=== PATIENT | female | born 1965 | race Caucasian/White ===

== ENCOUNTER 2019-06-10 08:21 | Day surgery (SDC) | payer OTHER, SELFPAY ==
[2019-06-07 07:36] VITALS: BMI 37.2
[2019-06-10] VITALS (20 sets, daily range): BP systolic 123–158; BP diastolic 70–92; PULSE 66–97; RESP 14–22; TEMP 35.6–37.2; O2SAT 93–98; BMI 36.0
--- NOTE | 2019-06-10 | PATH_ITS ---
[facility] Accession Number: [id number] . 01 Material submitted: . uterus - UTERUS, RIGHT FALLOPIAN TUBE, AND BILATERAL OVARIES . 01 Diagnosis: Uterus, Bilateral Ovaries and Right Fallopian Tube; Hysterectomy with Bilateral Oophorectomy and Right Salpingectomy: Endometrium: Proliferative phase endometrium; negative for endometrial polyps, hyperplasia, atypia and malignancy. Myometrium: Benign leiomyomas with hyalinized changes and adenomyosis also present. Negative for atypia and malignancy. Bilateral Ovaries: One ovary with endometriotic cyst and the other ovary with corpus albicans. Negative for atypia and malignancy. Right Fallopian Tube: Benign fallopian tube with endometriosis and associated cyst. Negative for atypia and malignancy. [facility] 06/13/2019 1719 Local . 01 Electronically signed: . Joan Blackwell MD, Pathologist NPI- [id number] . 01 Gross description: . Received in formalin, labeled uterus, right fallopian tube and bilateral ovaries, is a morcellated uterus (351 grams, 17.2 x 16.7 cm in aggregate), two ovaries (ovary #1- 5.0 x 2.7 x 1.2 cm; ovary #2- 3.5 x 3.0 x 1.2 cm), and a non-fimbriated fallopian tube segment (length-2.0 cm, diameter-0.9 cm). The cervix and second fallopian tube are absent. The specimen cannot be oriented and the endometrium and myometrium cannot be grossly measured. The parenchyma is narayanan-white and contains multiple solid firm white whorled well-circumscribed homogenous nodules (0.1 cm-2.5 cm). The serosa is pale narayanan smooth and shiny. The ovaries have holly-yellow dull smooth and flat serosa and holly-white solid cystic parenchyma with corpus albicans identified. The cavities (0.1 cm-2.4 cm) contain brown gelatinous material. The apparent fallopian tube has narayanan smooth and shiny serosa and a dilated lumen containing brown paste-like material. Section code: (A1-A5) uterine parenchyma, cordage sales representative; (A6) ovary #1, cordage sales representative serial section; (A7) ovary #2, cordage sales representative serial section; (A8) fallopian tube, cordage sales representative serial section. ([id number]) /[facility] 06/11/2019 1914 Local . 01 Pathologist provided ICD-10: D25.9, N83.209 . 01 CPT . 338249 Performed at: 01 [facility] [address], [place], [place] [id number] MD Duglas Chun MD Phone: [phone]
[2019-06-10] MEDS: LACTATED RINGERS 1,000 ML 100 ML IV ×3 (09:07→16:27)
--- NOTE | 2019-06-10 09:12 | P.OP_ITS ---
Operative Date/Time/Diagnoses Date of procedure: 06/10/19 Time of procedure: 11:30 Pre-op diagnosis: Fibroid uterus Complex ovarian cyst Post-op diagnosis: same Procedure & Clinicians Procedure: Procedures Operation Date: 06/10/19 09:45 <No data on this case meets the specified criteria> Indications: Fibroid uterus Complex ovarian cyst Surgeon: Courtney Otero Senior Hris Analyst: Alta Sanchez Anesthesia Type: General Operative Notes Findings: 12 week size multi fibroid uterus Left ovarian endometrioma Significant left adnexal adhesions Omental to anterior abdominal wall adhesions Bladder to uterine adhesions Normal right ovary and partial tube Closure Type: primary Specimen(s): right tube & ovary, uterus and other (Left ovary) Applied: catheter Estimated blood loss (mL): 75 Blood products transfused: none Procedure in detail: The patient was taken to the operating room where she was placed in the dorsal supine position. After adequate general endotracheal anesthesia was achieved, she was placed in the dorsal lithotomy position, and prepped and draped in the usual sterile fashion. A timeout was performed. A bivalve speculum was placed into the vagina and the anterior lip of the cervix grasped with a single-tooth tenaculum. The cervical os was sequentially dilated until the ZUMI uterine manipulator could pass easily into the endometrial cavity. The single-tooth tenaculum was removed from the anterior lip of the cervix, and the bivalve speculum was removed from the vagina. Attention was then turned to the abdomen where 6 mL of half percent Marcaine with epinephrine were injected in the umbilical fold. A 5 mm incision was made. The long veress needle was placed into the peritoneal cavity, and its placement confirmed by aspiration and drop test. The veress needle was removed. A 5 mm trocar was placed without difficulty. 2 other incisions were made midway between the pubic symphysis and umbilicus after 5 mL of half percent Marcaine with epinephrine were injected. These were 5 mm incisions. Two, 5 mm trochars were placed under direct visualization. Extensive lysis of omental to anterior abdominal wall adhesions were taken down with the PlasmaKinetic. The right tube and ovary were grasped with an atraumatic grasper. Using the plasma kinetic with settings of 40 W the mesosalpinx was cauterized and cut all the way down to the cornua of the uterus. The cornua of the uterus was then grasped with an atraumatic grasper. The utero-ovarian ligaments were cauterized and cut. The round ligament and broad ligament were cauterized and cut with plasma kinetic. Hemos tasis was achieved. The bladder flap was created using the plasma kinetic with cautery and cut skilled nursing across. The uterine arteries on the right side were extensively cauterized with plasma kinetic. On the left side the Endo Burke were used to take down bowel to left adnexal adhesions as well as ovary to left pelvic sidewall adhesions. There were also some adhesions between the left adnexa and the uterus and these were taken down as well. Hemostasis was achieved. The left ovary was grasped with an atraumatic grasper. The infundibulopelvic ligament on the left side was cauterized and cut. The round ligament and broad ligament were cauterized and cut. The remainder of the bladder flap was created using the PlasmaKinetic. The remainder of the bladder flap was created and the bladder taken down off the lower uterine segment and cervix. The Zumi uterine manipulator was removed from the uterus. A moistened sponge stick was placed into the vagina. Using the Linaloop, the cervix was amputated from the uterus 2 cm above the uterosacral ligament. The endocervical canal was extensively cauterized with the PlasmaKinetic. 6 mL of half percent Marcaine with epinephrine were injected above the pubic symphysis. A 12mm incision was made. A 12 mm trocar was placed under direct visualization. The trochar was removed. The fascial incision was extended using a Bill. An Endobag was placed through the suprapubic incision and the uterus, ovaries, and right tube were placed into the Endobag. The uterus was morcellated in approximately 20 pieces. The tube and ovaries were also removed from the Endobag. The Endobag was removed from the peritoneal cavity. The pelvis was copiously irrigated with warm normal saline. No bleeding was noted. 20 mL of 0.2% ropivacaine were placed over the pelvic pedicles. The instruments were removed from the abdomen. The CO2 was allowed to escape. The suprapubic incision was closed on the fascia with 0 Vicryl. All of the incisions were closed with 4-0 Biosyn in a subcuticular fashion. Steri strips, 2x2's and op sites were placed over the incisions. The moistened sponge stick was removed from the vagina. Sponge, lap, and instrument counts were correct x 2. The patient tolerated the procedure well, was taken to PACU in stable condition. Complications: none Post-operative Condition: stable Disposition: PACU Plan for aftercare: To acute care after recovery
[2019-06-10] MEDS: INSULIN REGULAR 100 UNIT/ML 3 ML VIAL IV (09:27)
--- NOTE | 2019-06-10 09:30 | PM.PREOP ---
Pre-operative Note Interval Note History & Physical reviewed/Exam performed by Physician: Yes Changes to H&P: No
[2019-06-10] MEDS: CEFAZOLIN 2 GM/100 ML FROZ.PIGGY IV (09:36)
--- NOTE | 2019-06-10 10:23 | SUR.OPER ---
Lithotomy on padded OR bed. Rangeley Pad Positioner under torso. Head on pillow, arms padded and tucked at sides. Legs secured in padded yellow fins stirrups.
--- NOTE | 2019-06-10 10:24 | SUR.OPER ---
CBG rechecked, per Dr. Cm, at 1025 = 188. Dr. Cm notified of results.
[2019-06-10] MEDS: BUPIVACAINE 0.5% W/ EPI (PF) VIAL 30 ML INJ (10:39)
[2019-06-10] MEDS: ROPIVACAINE 0.2% PF 2 MG/ML 10ML AMP 20 ML INJ (10:39)
[2019-06-10] MEDS: HYDROMORPHONE 2 MG INJ 0.5 MG IV ×3 (12:20→12:50)
[2019-06-10] MEDS: INSULIN REGULAR 100 UNIT/ML 3 ML VIAL 8 UNIT IV (12:26)
[2019-06-10] MEDS: OXYCODONE/ACETAMINOPHEN 5/325 TABLET 1 TAB PO (13:00)
[2019-06-10] MEDS: INSULIN ASPART 100 UNIT/ML INSULN PEN SUBCUT ×3 (14:00→21:05)
--- NOTE | 2019-06-10 14:15 | SUR.PHASEI ---
Pt transferred to room 204 via bed with all belongings. Last vital signs stable with pain at tolerable level; see flowsheet documentation for details. Pt's blood glucose was 248 prior to transfer and 5 units of Novolog was given subQ per Dr Cm's order. Report given to RACHEL Dow prior to transfer. Victor M to assume care of pt at this time.
--- NOTE | 2019-06-10 14:24 | PC.NURSE ---
Day shift: Pt on unit at approx 1420 from PACU. Pt reports pain minimal at this time but does c/o nausea. VS ok. SUPERINTENDENT BUILDING to check BG at this time because per CROWN BLOCKER BG elevated post-op. 3 Lap site dressings CDI. CMS intact. PPP. Family in room for support. Oriented to room and call light.
--- NOTE | 2019-06-10 14:48 | PC.NURSE ---
Day shift: Called Dr Nair office and requested that adress pain meds, nausea meds and DM meds at approx 1435.
--- NOTE | 2019-06-10 15:43 | PC.NURSE ---
Addendum entered by Courtney Perkins R.N. 06/10/19 21:38: Pt had small emesis late in evening. IVF continue as per orders. Dsg to abd. remain CDI Barbosa cath patane clear yellow urine. Stable post op course. Call light w/in reach, bed alarm on for pt safety. Continue w/plan of care. Addendum entered by Courtney Perkins R.N. 06/10/19 17:46: Med @ 1630 w/torodol for discomfort. IVF LR @ 100cc/hr infusing into LFA via pump w/o incidence. Stable post op course. Original Note: Pt resting quietly at this time. HL LFA intact. Three small dsg across abdomen CDI Barbosa cath patent clear yellow urine. Awaiting orders from . Call light w/in reach, bed alrm on for pt safety.
[2019-06-10] MEDS: KETOROLAC 30 MG/ML VIAL IV (16:28)
[2019-06-10] MEDS: ONDANSETRON 4 MG/2 ML INJ IV (20:08)
[2019-06-10] MEDS: METFORMIN HCL 500 MG TABLET 1000 MG PO (20:08)
[2019-06-10] MEDS: DOCUSATE 250 MG CAPSULE PO (20:09)
[2019-06-11] MEDS: KETOROLAC 30 MG/ML VIAL IV ×3 (00:42→13:08)
[2019-06-11] MEDS: LACTATED RINGERS 1,000 ML 100 ML IV (00:42)
[2019-06-11 05:05] VITALS: BP 143/83; PULSE 82; RESP 20; TEMP 36.8; O2SAT 99
--- NOTE | 2019-06-11 05:31 | PC.NURSE ---
Pt VSS, lung sounds clear bilaterally. Pt denies nausea on this shift. Pt given Toradol Q6 for pain 5/10. Per evening shift Rosmery Perkins, Q4 blood sugar checks were discontinued and ACHS put into their place. No notes noted in chart about this change of order from previous RN or Dr. Otero. Orders left in place until pt is seen by Dr. Otero in AM. Pt BS was 147 on this shift. Pt is wearing SCD's, call light is in within reach.
[2019-06-11 06:13] LABS: Add Manual Diff / Slide Review NO; Basophils Absolute Auto 100 /uL (0-100); Basophils Percent Auto 0.5 % (0-2); Eosinophils Absolute Auto 100 /uL (0-450); Eosinophils Percent Auto 0.6 % (2-4); Hematocrit 37.6 % (36-46); Hemoglobin 12.9 g/dL (12.0-16.0); Lymphocytes Absolute Auto 3800 /uL (1100-4500); Lymphocytes Percent Auto 40.6 % (25-40); Mean Corpuscular HGB Conc 34.3 % (30-36); Mean Corpuscular Volume 84.3 fL (80-100); Monocytes Absolute Auto 500 /uL (0-900); Monocytes Percent Auto 5.3 % (3-14); Neutrophils Absolute Auto 5000 /uL (1500-7000); Platelet Count 252 X10^3/uL (150-400); Red Blood Cell Count 4.45 X10^6/uL (4.0-5.2); White Blood Cell Count 9.4 X10^3/uL (4.5-11.0)
[2019-06-11] MEDS: LOSARTAN 50 MG TABLET PO (07:56)
[2019-06-11] MEDS: PRAVASTATIN 20 MG TABLET 10 MG PO (07:56)
[2019-06-11] MEDS: METFORMIN HCL 500 MG TABLET 1000 MG PO (07:57)
[2019-06-11] MEDS: DOCUSATE 250 MG CAPSULE PO (07:57)
[2019-06-11 08:00] VITALS: BP 144/81; PULSE 75; RESP 13; TEMP 36.7; O2SAT 92
[2019-06-11] MEDS: GLIMEPIRIDE 2 MG TABLET PO (08:17)
[2019-06-11] MEDS: INSULIN ASPART 100 UNIT/ML INSULN PEN SUBCUT ×2 (08:19→12:37)
== END 2019-06-11 14:30 | disposition home or self-care (01) ==
LOC: OR 10:16 → AC 13:41
PROVIDERS: PCP Obstetrics & Gynecology; Visit Provider Obstetrics & Gynecology
PROC: 0UT94ZL Resection of Uterus, Supracervical, Percutaneous Endoscopic Approach (ICD-10-PCS; CPT 58542; principal; 2019-06-10 09:45)
DX: D25.9 Leiomyoma of uterus, unspecified (principal); N83.201 Unspecified ovarian cyst, right side; E11.9 Type 2 diabetes mellitus without complications; Z79.4 Long term (current) use of insulin; I10 Essential (primary) hypertension; N73.6 Female pelvic peritoneal adhesions (postinfective)
CPT/HCPCS: 58542; 36415; 82962; 85025; 94760; J0690; J1100; J1170; J1885; J2250; J2405; J2704; J2795; J3010